=== PATIENT | female | born 1960 | race Caucasian/White ===

== ENCOUNTER 2017-02-23 05:57 | Inpatient (IN) | payer BC, OTHER ==
[2017-02-23] MEDS ORDERED: TRANEXAMIC ACID 1,000 MG in NORMAL SALINE 100 ML IV PRN (06:00)
[2017-02-23] MEDS ORDERED: ceFAZolin SODIUM 1 GM VIAL IV PRN (06:00)
[2017-02-23] MEDS ORDERED: RINGERS SOLUTION,LACTATED 1,000 ML IV PRN (06:00)
[2017-02-23] MEDS ORDERED: MORPHINE SULFATE 15 MG TABLET.SA PO PRN (06:00)
[2017-02-23] MEDS ORDERED: ROPIVACAINE HCL/PF 100 MG, EPINEPHrine 0.2 MG, KETOROLAC TROMETHAMINE 30 MG in NORMAL S... IJ PRN (06:00)
--- OUTSIDE RECORDS SUMMARY | 2017-02-23 06:01 | XMS REPORT | Continuity of Care Document ---
:1960 Author Organization [facility] ([facility]) Address [address] [place] [address] Phone [phone] Care Team Providers Name Role Phone Myriam Solis Primary Care Provider [phone] Source Comments This disclosure is being made pursuant to the Care Everywhere program, applicable federal and state laws, and may not contain all informaitonavailable regarding this patient.[facility] ([facility]) Active Allergies and Adverse Reactions Allergen Noted Date Severity Reactions Comments Docetaxel 02/11/2014 Flushing Lower back pain Sulfa (Sulfonamide Antibiotics) 01/15/2014 Rash Current Medications Prescription Sig. Disp. Refills Start Date End Date Status FOLIC ACID/MULTIVITS-MIN Take by mouth. Active (ONE DAILY WOMENS 50 PLUS PO) biotin 10 mg tablet Take 10 mg by Active mouth daily. GLUCOSAMINE/CHONDROITIN Take by mouth. Active SULF A (GLUCOSAMINE-CHONDROITIN PO) bvylnvd-qvkyiigqt-mexnvh-z Take 1 Tab by Active inc tablet mouth daily. TRIAMCINOLONE ACETONIDE Active (NASACORT NA) ibuprofen 200 mg tablet Take 200 mg by Active mouth every 6 hours as needed. 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 06/28/2014 07/23/2014 Pre-op evaluation 01/15/2014 06/28/2014 Most Recent Encounters Date Type Specialty Providers Description 01/26/2017 Office Visit Women's Health Dayana Mcmullen, Dx: 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 (Primary Dx) 01/26/2017 Hospital Encounter Radiology Dayana Mcmullen, Dx: Encounter for LAYBOY OPERATOR screening mammogram Davide Chirinos, for malignant MD neoplasm of breast Immunizations Name Dates Previously Given Next Due Pneumococcal Polysaccharide, PPSV23 (Pneumovax 23) 01/25/2014 Social History Tobacco Use Types Packs/Day Years Used Date Never Smoker Smokeless Tobacco: Never Used Tobacco Cessation:Counseling Given: Yes Comments: Alcohol Use Drinks/Week oz/Week Comments Yes 1 Glasses of wine 0.0 Occasional 1 Standard drinks or equivalent Last Filed Vital Signs Vital Sign Reading Time Taken Blood Pressure 125/72 01/26/2017 10:10 AM CDT Pulse 84 01/26/2017 10:10 AM CDT Temperature 36.5 C (97.7 F) 04/26/2016 11:08 AM CDT Respiratory Rate 16 04/26/2016 11:08 AM CDT Height 1.6 m (5' 2.99") 01/26/2017 10:10 AM CDT Weight 64.6 kg (142 lb 6.7 oz) 01/26/2017 10:10 AM CDT Body Mass Index 25.23 01/26/2017 10:10 AM CDT Oxygen Saturation 98% 05/12/2015 11:13 AM CDT Plan of Care Date Type Specialty Providers Description 01/18/2018 Appointment Radiology Default, Other Billg - Subj: Appointment Defo Scheduled [address] [place] [address] [phone] (Fax) 01/18/2018 Appointment Women's Health Default, Other Billg - Defo [address] [place] [address] [phone] (Fax) Subj: Appointment Dayana Mcmullen, LAYBOY OPERATOR [address] [place] [address] [phone] (Fax) Scheduled Health Maintenance Due Date Last Done Comments HCV Screening 1960 Hepatitis B Vaccine (1 of 3 1960 - Primary Series) Tdap Vaccine 1969 Lipid Disorder Screening 1976 MMR Vaccine 1976 Td Vaccine 1976 Cervical Cancer Screening 1988 Colonoscopy 12/14/2008 Pneumococcal Vaccine (2 of 3 01/25/2015 01/25/2014 - PCV13) Influenza Vaccine: Seasonal 05/03/2017 (Season Ended) Mammogram 01/26/2018 01/26/2017, Additional history exists 01/27/2016, 01/28/2015 Results from Last 3 Months BI DIGITAL SCREENING MAMMOGRAM UNI LEFT& TONIA (01/26/2017 9:48 AM) Impressions Findings / Impression:There are no suspicious masses or suspicious microcalcifications and no areas of suspicious architectural distortion in the left breast. Comparison to prior exam demonstrates no interval change. Recommendations:Continue annual screening mammogram.These results were provided to the patient by letter. Final Assessment:Negative mammogram. BI-RADS Category 1. Narrative Procedure: BI DIGITAL SCREENING MAMMOGRAM UNI LEFT & TONIA Technique:Digital mammogram with Tomosynthesis, left CC and MLO views. Clinical Indication:Breast cancer screening Personal History of breast cancer: Yes, right and 2002 and 2013 status post mastectomy and radiation Personal Delivery History: Prior to age 28 Personal History of biopsy proven benign breast disease: Yes, right in 2011 Personal history of reduction mammoplasty: No Family History of breast cancer: No Date of Comparison Study: 01/27/2016, 01/28/2015, 01/15/2014 Parenchymal Radiodensity: The breasts are almost entirely fatty. Procedure Note Edison, Incoming Imaging Results - TueJan 26, 2017 10:05 AM CDT Procedure: BI DIGITAL SCREENING MAMMOGRAM UNI LEFT & TONIA Technique: Digital mammogram with Tomosynthesis, left CC and MLO views. Clinical Indication: Breast cancer screening Personal History of breast cancer: Yes, right and 2002 and 2013 status post mastectomy and radiation Personal Delivery History: Prior to age 28 Personal History of biopsy proven benign breast disease: Yes, right in 2011 Personal history of reduction mammoplasty: No Family History of breast cancer: No Date of Comparison Study: 01/27/2016, 01/28/2015, 01/15/2014 Parenchymal Radiodensity: The breasts are almost entirely fatty. IMPRESSION Findings / Impression: There are no suspicious masses or suspicious microcalcifications and no areas of suspicious architectural distortion in the left breast. Comparison to prior exam demonstrates no interval change. Recommendations: Continue annual screening mammogram. These results were provided to the patient by letter. Final Assessment: Negative mammogram. BI-RADS Category 1.
--- OUTSIDE RECORDS SUMMARY | 2017-02-23 06:01 | XMS REPORT | Continuity of Care Document ---
:1960 Author Organization [facility] [place] [address] Care Team Providers Name Role Phone Myriam Solis Primary Care Provider [phone] Source Comments This disclosure is being made pursuant to the Invarium program and maynot contain all information available regarding this patient.[facility] Active Allergies and Adverse Reactions Allergen Noted Date Severity Reactions Comments Sulfa Antibiotics 01/28/2017 Low Rash Current Medications Be aware that medications may not be up to date as of this document. Alwaysverify current medications with the patient. Prescription Sig. Disp. Refills Start Date End Date Status buPROPion XL Take 150 mg by 1 01/14/2017 Active (WELLBUTRIN XL) 150 mouth daily. MG 24 hr tablet cephALEXin (KEFLEX) Take 1 capsule 30 capsule 0 01/28/2017 02/07/2017 500 MG capsule by mouth 3 (three) times daily. predniSONE Take 1 tablet 3 tablet 0 01/28/2017 01/31/2017 (DELTASONE) 20 MG by mouth daily. 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 (Primary Dx) Social History Tobacco Use Types Packs/Day Years Used Date Never Assessed Last Filed Vital Signs Vital Sign Reading Time Taken Blood Pressure - - Pulse 108 01/28/2017 4:51 PM CDT Temperature 37.4 C (99.3 F) 01/28/2017 4:51 PM CDT Respiratory Rate - - Height 1.626 m (5' 4") 01/28/2017 4:51 PM CDT Weight 65.227 kg (143 lb 12.8 oz) 01/28/2017 4:51 PM CDT Body Mass Index 24.67 01/28/2017 4:51 PM CDT Oxygen Saturation 98% 01/28/2017 4:51 PM CDT Plan of Care Health Maintenance Due Date Last Done Comments Hepatitis C Screening 1976 Tetanus/Pertussis (1 - Tdap) 1977 Pap Smear 12/16/1979 Colonoscopy 2008 Mammogram 2008 Well Adult Visit 2008 Influenza Immunization (#1) 2016 Results from Last 3 Months Not on file
[2017-02-23] MEDS ORDERED: RINGERS SOLUTION,LACTATED 1,000 ML IV ONE ×3 (07:45→09:35)
[2017-02-23] MEDS ORDERED: ACETAMINOPHEN 500 MG TABLET PO PRN (09:47)
[2017-02-23] MEDS ORDERED: MAG HYDROX/ALUMINUM HYD/SIMETH 30 ML UDC PO PRN (09:47)
[2017-02-23] MEDS ORDERED: PROMETHAZINE HCL 5 MG in DEXTROSE 5 % IN WATER 50 ML IV PRN ×2 (09:47)
[2017-02-23] MEDS ORDERED: DEXTROSE 5%-LACTATED RINGERS 1,000 ML IV PRN (09:47)
[2017-02-23] MEDS ORDERED: diphenhydrAMINE HCL 50 MG/ML VIAL IV PRN (09:47)
[2017-02-23] MEDS ORDERED: HYDROmorphone HCL 1 MG/ML DISP.SYRIN IV PRN (09:47)
[2017-02-23] MEDS ORDERED: MAGNESIUM HYDROXIDE 30 ML UDC PO PRN (09:47)
[2017-02-23] MEDS ORDERED: ZOLPIDEM TARTRATE 5 MG TABLET PO PRN (09:47)
[2017-02-23] MEDS ORDERED: ONDANSETRON HCL/PF 2 MG/ML VIAL IV PRN (09:47)
--- NOTE | 2017-02-23 10:07 | OR ---
Operative Report - Dictated Report Narrative: Date: 02/23/2017 Preoperative diagnosis: Right Knee degenerative joint disease. Postoperative diagnosis: Right Knee degenerative joint disease. Procedure: Right Total knee arthroplasty. Surgeon: Jon Craft M.D. Professor Of Food Biochemistry: Lamin Pierce PA-C Anesthesia: Spinal with regional block and local periarticular joint injection. Complications: None Specimens: Bone for disposal. Estimated blood loss: Minimal. Tourniquet time: 75 Minutes at 325 millimeters of mercury. Retained implants: Depuy Attune size 6 narrow right lugged cemented posterior stabilized femoral component. Size 5 fixed-bearing cemented tibial platform. 6 by 7 millimeter posterior stabilized cross-linked tibial insert. 38 millimeter medialized patella button. Indications: Mrs. Buckner is a 56-year-old female who has had advanced right knee arthrosis. This patient was followed in my clinic for period of time with significant complaints of right knee pain consistent with arthritic changes. They had failed conservative measures including, but not limited to, activity modification, passage of time, medications, and other conservative measures. Patient wished to proceed with surgical treatment. The risks, benefits, and alternatives were discussed in clinic. The risks of , blood clots, bleeding, infection, nerve/tendon blood vessel/ injury, malposition of components, intraoperative fracture, postoperative limited range of motion, persistent pain, failure of components, and need for additional procedures. Patient wished to proceed consent was obtained after answering all questions. Procedure: After marking the correct extremity on the floor, the patient was taken to the operating room. A timeout was performed. IV antibiotics consisting of Ancef were administered prior to the procedure. A regional followed by spinal anesthetic was induced by anesthesia on the operative table with all bony prominences well-padded. Mesa catheter was placed, and a bump was placed under the operative side buttock. SCDs and MARY hose were utilized on the nonoperative leg. A well-padded tourniquet was applied to the operative thigh. The operative leg was then pre-scrubbed with ebenezer lutz prepped, and draped in a standard sterile fashion. After exsanguinating the extremity with an Esmarch bandage, the tourniquet was inflated. After marking out the anterior knee for standard incision centered over the patella, the skin was incised and dissected down to the joint retinaculum. The joint retinaculum was marked out as well as the horizontal axis of the patella, and a standard medial parapatellar arthrotomy was then made. The most proximal aspect of the quadriceps tendon and the patella tendon insertion were protected from release. A partial synovectomy was performed as well as a resection of the infrapatellar fat pad. The distal femoral fat pad proximal to the trochlea was also resected using cautery. The soft tissues were elevated off the medial aspect of the proximal tibia using a Figueroa elevator ensuring that we did not transect the medial collateral ligament. Upon initial evaluation range of motion was approximately 0 degrees to 130 degrees of flexion. There were signs of advanced arthrosis in the medial and patellofemoral joint spaces. There were large marginal osteophytes which were removed with a rongeur. The knee was hyperflexed and the patella was tucked laterally. Protecting the surrounding soft tissues with Homans, an entry drill was placed down the femoral canal using Whitesides line for guidance into the entry point. The intramedullary femoral alignment cristo was utilized in order to cut the distal femur in 5 degrees of valgus resecting 10 millimeters of bone. Next the distal femur was sized to a size 6. A posterior referencing guide was utilized to place the distal femoral cutting block in 3 degrees of external rotation. This was pinned into place. The rotation was confirmed both visually and based on anatomic landmarks. The 4 in 1 cutting jig of the appropriate size was utilized in order to make all bony cuts. The angle wing was used to ensure no notching. Retractors were utilized in order to protect surrounding soft tissues. This cut did not result in any excessive notching. We then cut the box centered over the distal femur. This allowed for resection of the anterior and posterior cruciate ligaments. I then turned my attention to the preparation of the tibia. Using an extra medullary tibial alignment cristo, 4 millimeters of bone was resected off the medial articular surface. This was made perpendicular to the mechanical axis of the joint with the alignment cristo centered over the ankle mortise. The alignment cristo was checked and was noted to be parallel to the mechanical axis, centered over the medial one third of the tibial tubercle, paralleling the anterior surface of the tibia. We then turned our attention to the remaining meniscus and soft tissues. These were removed while protecting the surrounding ligaments and soft tissues. The marginal osteophytes off the anterior, posterior, medial, lateral aspects of the femur and tibia were removed. The tibia was sized out to a size 5. Next the tibia was drilled and punched in an externally rotated position. Next the trial femur and a series of tibial inserts were utilized in order to allow for full extension and maximal flexion. It was found that a 7 millimeter insert gave the best range of motion and stability at multiple flexion points as well as at full extension there was less than 2 mm of gapping both medially and laterally. There is minimal anterior translation with the knee at 90 degrees of flexion and no signs of being able to dislocate the knee. The patella was then prepared. The initial thickness was 20 millimeters. This was reamed down to 12 millimeters parallel to the anterior surface of the patella. It was sized out to a size 38 medialized patella button. This was then drilled and trialed. Without any medial restraint the patella tracked appropriately and did not sublux or dislocate. At this point, it was felt these were the appropriate sized implants, and all trials were removed. The standard periarticular joint injection consisting of ropivacaine, Toradol, and epinephrine were injected into the periarticular joint tissues. The bony surfaces were thoroughly irrigated with a pulsatile- suction saline irrigation device. A bone plug from the prior resected anterior chamfer cut was placed into the drill hole at the distal femur. The bony surfaces were then dried in preparation for placement of the implants. The cement was vacuum mixed per the sustainability officer's instructions. The cement was placed on the dry bony surfaces and posterior aspect of the implants. The implants were impacted into place, removing all extruded cement. At this point anesthesia administered tranexamic acid per protocol intravenously. The knee was placed in extension with axial loading with the trial insert while the cement cured. Once the cement cured, all remaining extruded cement was removed. The knee was placed through a range of motion with the trial insert to ensure appropriate range of motion and stability. Final range of motion was approximately 0 to 120 degrees. The knee was again thoroughly irrigated with pulsatile saline lavage. The final polyethylene insert was then impacted into place ensuring no retained soft tissues. The remaining periarticular joint injection was injected. A medium Hemovac drain was placed exiting superior laterally. The knee was then placed over a triangle and the arthrotomy was closed with interrupted #1 Vicryl after thoroughly irrigating the joint. The deep and subcutaneous tissues were closed with interrupted oh and 3-0 Vicryl respectively. Skin was closed with a running subcutaneous 3-0 Monocryl and Prineo Dermabond dressing. 4 x 4's, ABD, Sof-Rol, and a full leg [place] wrap were applied. All sponge, needle, blade, and instrument counts were correct prior to closing the wounds. Postoperative condition: The patient was awoken and transferred to the postanesthesia care unit in stable condition. Plan is to be admitted to the inpatient medical/surgical floor postoperatively for 24 hours of IV antibiotics , physical therapy, occupational therapy, and medical comanagement. Patient will be weightbearing as tolerated with range of motion as tolerated. DVT prophylaxis will be with SCDs, MARY hose, and pharmacological anticoagulation. Anticipated hospital stay is approximately 2-4 days.
[2017-02-23] MEDS: KETOROLAC TROMETHAMINE 15 MG/ML VIAL IV SCH ×3 (10:47→23:25)
[2017-02-23] MEDS: ceFAZolin SODIUM 1 GM in DEXTROSE 5 % IN WATER 100 ML IV SCH ×4 (13:04→19:39)
[2017-02-23] MEDS: SENNOSIDES/DOCUSATE SODIUM 1 TAB TABLET PO SCH (20:14)
[2017-02-23] MEDS: MORPHINE SULFATE 15 MG TABLET.SA PO SCH (20:14)
[2017-02-24] MEDS: ceFAZolin SODIUM 1 GM in DEXTROSE 5 % IN WATER 100 ML IV SCH ×2 (01:15)
[2017-02-24] MEDS: KETOROLAC TROMETHAMINE 15 MG/ML VIAL IV SCH ×4 (05:25→22:56)
[2017-02-24 05:39] LABS: Hematocrit 36.4 % (37.0-47.0); Hemoglobin 11.5 gm/dL (12.5-16.0); Mean Cell Volume 92.9 fl (78-100); Mean Corpuscular Hemoglobin 29.3 pg (27-31); Mean Corpuscular Hgb Conc 31.6 g/dl (32-36); Mean Platelet Volume 12.7 fl (6.0-9.5); Platelet Count 117 K/mm3 (150-450); Red Blood Count 3.92 M/mm3 (4.2-5.4); Red Cell Distribution Width 14.5 % (11.5-14.0); White Blood Count 8.1 K/mm3 (4.0-10.5)
[2017-02-24 05:57] LABS: Anion Gap 11.9 mmol/L (6.8-13.8); BUN/Creatinine Ratio 20.9 (9.0-21.6); Calcium * 8.5 mg/dL (7.9-10.9); Carbon Dioxide 27.2 mmol/L (24-32.6); Potassium 4.1 mmol/L (3.4-4.6)
--- NOTE | 2017-02-24 08:02 | PN ---
Subjective - Date and Time Seen Date: 02/24/17 Time: 08:00 Subjective Narrative: Subjective: Reports no concerns or pain. Has not gotten up with therapy. Pain is well-controlled. Voiding without any complications. Tolerating by mouth intake. Denies any nausea or vomiting. Denies calf pain. Slept well. Physical exam: Alert and oriented to person, place and time Right lower Extremity: Palpable dorsalis pedis pulse. Sensation grossly intact to light touch. Dressings clean dry. Able to flex and extend ankle and toes. No excessive drainage. Calf and thigh are soft and nontender. Assessment: Postop day one status post right total knee arthroplasty. Plan: Continue with physical and occupational therapy weightbearing as tolerated. Continue with anticoagulation. 24 hours postoperative prophylactic antibiotics. Pain control with goal to rely on oral medications. Continue bowel regimen. Will need 6 weeks with walker or assitive device to protect joint while ambulating during the recovery process. Discharge planning. Discontinue drain and Mesa catheter. Repeat labs in a.m. Objective - Vitals Vitals: Last Vital Signs Temp 37.1 C 02/24/17 07:33 Pulse 103 H 02/24/17 07:33 Resp 18 02/24/17 07:33 BP 118/45 02/24/17 07:33 Pulse Ox 98 02/24/17 07:33 - Abnormal Lab Findings Abnormal Lab Findings: Abnormal Lab Results 02/24/17 02/24/17 Range/Units 05:30 05:30 RBC 3.92 L (4.2-5.4) M/mm3 Hgb 11.5 L (12.5-16.0) gm/dL Hct 36.4 L (37.0-47.0) % MCHC 31.6 L (32-36) g/dl RDW 14.5 H (11.5-14.0) % Plt Count 117 L (150-450) K/mm3 MPV 12.7 H (6.0-9.5) fl Random Glucose 112 H (70-110) mg/dL Cauti Physician Documentation - Urinary Catheter Management Urethral (Mesa) Date of Insertion: 02/23/17 Time of Insertion: 08:00 Date of Removal: 02/24/17 Time of Removal: 07:15 Assessment/Plan - Problems/Diagnosis (1) Acute blood loss anemia Problem: Acute (2) Status post total right knee replacement Problem: Acute
[2017-02-24] MEDS: MULTIVITAMINS 1 CAP CAPSULE PO SCH (09:46)
[2017-02-24] MEDS: buPROPion HCL 150 MG TAB.SR.24H PO SCH (09:46)
[2017-02-24] MEDS: MORPHINE SULFATE 15 MG TABLET.SA PO SCH ×2 (09:46→21:01)
[2017-02-24] MEDS: ENOXAPARIN SODIUM 40 MG/0.4 ML SYRG SC SCH (09:46)
[2017-02-24] MEDS: SENNOSIDES/DOCUSATE SODIUM 1 TAB TABLET PO SCH (21:01)
[2017-02-25] MEDS: KETOROLAC TROMETHAMINE 15 MG/ML VIAL IV SCH (05:52)
[2017-02-25 06:06] LABS: Hematocrit 33.5 % (37.0-47.0); Hemoglobin 10.6 gm/dL (12.5-16.0); Mean Cell Volume 93.3 fl (78-100); Mean Corpuscular Hemoglobin 29.5 pg (27-31); Mean Corpuscular Hgb Conc 31.6 g/dl (32-36); Mean Platelet Volume 13.4 fl (6.0-9.5); Red Blood Count 3.59 M/mm3 (4.2-5.4); Red Cell Distribution Width 14.3 % (11.5-14.0); White Blood Count 7.7 K/mm3 (4.0-10.5)
[2017-02-25 06:23] LABS: Anion Gap 9.5 mmol/L (6.8-13.8); BUN/Creatinine Ratio 20.6 (9.0-21.6); Calcium * 8.6 mg/dL (7.9-10.9); Carbon Dioxide 28.8 mmol/L (24-32.6); Estimated Creat Clear 84.1; Potassium 4.3 mmol/L (3.4-4.6)
[2017-02-25 06:24] LABS: Platelet Count 40 K/mm3 (150-450)
[2017-02-25 07:19] VITALS: BP 94/48
[2017-02-25] MEDS: MULTIVITAMINS 1 CAP CAPSULE PO SCH (08:44)
[2017-02-25] MEDS: buPROPion HCL 150 MG TAB.SR.24H PO SCH (08:44)
[2017-02-25] MEDS: ENOXAPARIN SODIUM 40 MG/0.4 ML SYRG SC SCH (08:45)
[2017-02-25] MEDS: MORPHINE SULFATE 15 MG TABLET.SA PO SCH (08:45)
[2017-02-25] MEDS: oxyCODONE HCL/ACETAMINOPHEN 1 TAB TABLET PO PRN ×2 (09:57→14:17)
--- NOTE | 2017-02-25 11:41 | DS ---
(1) Acute blood loss anemia Problem: Acute (2) Status post total right knee replacement Problem: Acute Description of Stay: Mrs. Buckner was admitted to the floor after undergoing right total knee arthroplasty. Tolerated this well. Was admitted to the floor postoperatively for 24 hours of IV antibiotics, pain control, medical comanagement, and occupational and physical therapy. OT and PT were consulted to assist with activities of daily living and ambulation. Was made weightbearing as tolerated with range of motion as tolerated. Pain was initially controlled with IV regimen. This was transitioned to oral once tolerating a by mouth intake. Was resumed on home diet and medications. Had a Mesa catheter inserted and the operating room which was discontinued on postoperative day 1. A drain was placed intraoperatively into the knee which was discontinued on postoperative day 1. Lovenox SCD and MARY hose were utilized for DVT prophylaxis. Vital signs remained stable to the hospital course. Serial labs were obtained which showed a final hemoglobin of 10.6 grams. BMP was reviewed and was stable. Physical examination throughout the hospital course showed an extremity that had sensation that was intact to light touch, palpable pulses, a benign wound, motor intact to the toes, ankle, and knee. Knee range of motion was approximately 0 degrees to 70 degrees. Once an oral pain regimen was tolerated and physical therapy goals were met, it was felt that they were stable for discharge to home. Instructions: Continue with weightbearing as tolerated and range of motion as tolerated. Okay to shower as long as the wound is dry. If there is any drainage she is instructed to cover with dry gauze and tape. Change every 2-3 days as needed. Continue with physical therapy. Resume home diet. Report any fever over 101.5 Fahrenheit, uncontrolled pain, increased drainage, foul odor of drainage, new or increased calf pain or shortness of breath, or any other significant complaints. A 325mg dialy aspirin will be started after finishing anticoagulation if not allergic. Continue with MARY hose on the operative extremity until instructed otherwise. No driving until instructed otherwise. Follow up in approximately 10-14 days. Procedures Performed: see notes below List Procedures: Right total knee arthroplasty Discharge Disposition: Home self care Disposition: Home self-care Condition: Good Discharge Activity: Activity as tolerated, Weight bearing Discharge Diet: General/regular food Referrals: Myriam Solis MD [Primary Care Provider] - Additional Patient Instructions (free text): Physical Therapy at [facility] in [place] on TuesdayMarch 01 at 11:00am. Follow up with Dr. Craft 03/10 at 9:45. Prescriptions (Any new or edited meds): Enoxaparin Sodium [Lovenox] 40 mg SC Q24H #7 disp.syrin Morphine Sulfate [Ms Contin] 15 mg PO Q12H #10 tablet.sa oxyCODONE HCL/ACETAMINOPHEN [Percocet 5 MG/325 MG] 2 tab PO Q4H PRN #90 tablet PRN Reason: Moderate Pain Complete Home Medications List: Complete Home Medication List: Bupropion HCl [Bupropion Xl] 150 mg PO DAILY 03/09/14 Multivitamins [Multivitamin Shahriar] 1 cap PO DAILY 02/09/17 Enoxaparin Sodium [Lovenox] 40 mg SC Q24H #7 disp.syrin 02/25/17 Morphine Sulfate [Ms Contin] 15 mg PO Q12H #10 tablet.sa 02/25/17 Sennosides/Docusate Sodium [Senokot-S] 2 tab PO HS tablet 02/25/17 oxyCODONE HCL/ACETAMINOPHEN [Percocet 5 MG/325 MG] 2 tab PO Q4H PRN #90 tablet 02/25/17
== END 2017-02-25 14:30 | disposition home or self-care (01) | DRG 470 ==
LOC: MS 05:57
PROVIDERS: ADMIT Orthopaedic Surgery; ATTEND Orthopaedic Surgery
PROC: 0SRC0J9 Replacement of Right Knee Joint with Synthetic Substitute, Cemented, Open Approach (ICD-10-PCS; principal; 2017-02-23 08:00)
DX: M17.11 Unilateral primary osteoarthritis, right knee (principal); D62 Acute posthemorrhagic anemia; Z88.2 Allergy status to sulfonamides; Z85.3 Personal history of malignant neoplasm of breast

== ENCOUNTER 2019-01-15 06:28 | Inpatient (IN) ==
[~2019-01-15 06:28] MED LIST: MORPHINE SULFATE 15 MG TABLET.SA PO PRN; ROPIVACAINE HCL/PF 100 MG, EPINEPHrine 0.2 MG, KETOROLAC TROMETHAMINE 30 MG in NORMAL S... IJ PRN; TRANEXAMIC ACID 1,000 MG in NORMAL SALINE 100 ML IV PRN; ceFAZolin SODIUM 1 GM VIAL IV PRN
[2019-01-15] MEDS: RINGER'S SOLUTION,LACTATED 1,000 ML IV PRN ×3 (07:02→09:00)
--- NOTE | 2019-01-15 07:25 | ANES ---
Anesthesia Pre Procedure Eval Vitals/Labs: Last Vital Signs Temp 36.3 C 01/15/19 06:30 Pulse 89 01/15/19 06:30 Resp 20 01/15/19 06:30 BP 120/68 01/15/19 06:30 Pulse Ox 98 01/15/19 06:30 HOME MEDICATIONS Multivitamins [Multivitamin Shahriar] 1 cap PO DAILY 02/09/17 [Last Taken 01/14/19] melatonin 5 mg capsule 5 mg PO HS PRN cap 09/11/18 [Last Taken 01/14/19] Bupropion HCl [Wellbutrin Sr] 150 mg PO DAILY 01/11/19 [Last Taken 01/14/19] Fluticasone Propionate [Flonase Allergy Relief] 1 spray INHALATION DAILY PRN 01/11/19 [Last Taken 01/14/19] Allergies/Adverse Reactions: Allergies Allergy/AdvReac Type Severity Reaction Status Date / Time Sulfa (Sulfonamide Allergy Mild Hives Verified 01/15/19 06:42 Antibiotics) - Planned Procedure Planned Procedure: L total knee Medication List Reviewed:: Yes Allergies Verified: Yes Medical History (Updated 01/15/19 @ 06:41 by Dorothy Perez, MINH) FH: total knee replacement Breast cancer, female Onset Date: ~01/03/14 recurrent, right breast Breast lump 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 Cellulitis Onset Date: ~10/20/15 right breast Detached retina, right Onset Date: ~07/2018 surgical repair with scleral band Hay fever cough, rhinitis, sneezing Situational anxiety Sinusitis, acute Onset Date: ~10/23/13 Surgical History (Updated 01/15/19 @ 06:41 by Dorothy Perez RN) History of esophagogastroduodenoscopy (EGD) Onset Date: ~11/03/18 [facility] History of tonsillectomy age 4 H/O right mastectomy History of dilation and curettage age 25 and age 29 History of knee surgery Onset Date: ~08/14/15 right knee/[facility] right knee arthroscopy partial medial meniscectomy, chondroplasty grade 4 chondromalacia medial femoral condyle, patrial lateral meniscectomy, anterior fat pad debridement chondroplasty patellofemoral joint grade 3 chondromalacia History of lumpectomy Onset Date: ~2002 age 42/ breast cancer Right Hx of breast reconstruction Onset Date: ~07/2014 right Family History (Last Reviewed 01/15/19 @ 07:24 by Fernandez Mcarthur CRNA) Mother Depression Hypothyroidism Father CAD (coronary artery disease) Arthritis Eczema History of hip replacement Headache Glaucoma Sister Alive and well Sister Alive and well Brother CVA (cerebral vascular accident) Grandfather CHF (congestive heart failure) Cancer colon Glaucoma Son Alive and well Daughter Alive and well - Family Anesthesia History Family History:: no untoward family reactions to anesthesia, no familial bleeding tendencies, no family history of clotting disorders, no family history of premature - Airway/Neck/Teeth Within Normal Limits:: Yes Teeth Condition: intact Denture Type: Perm crown/bridge Mallampatti Score: 1 Thyromental (T-M) distance: > 6 cm Mandibulo Hyoid distance: > 3 cm - Respiratory Respiratory Physical: lungs clear Smoking Status: Never smoker Discussed smoking cessation including day of surgery: No Sleep Apnea currently treated: No Sleep Apnea by current assessment: No Discussed Risks/Treatment of RJ: No - Cardiovascular Cardiac History: other - Breast cancer Tolerate Activity: Good Heart Sounds: S1 & S2, Regular - Anesthesia Assessment and Plan ASA Class: PS, III Anesthesia Type Plan: Block - Left ultrasound guided adductor canal nerve block for postop analgesia, Spinal
[2019-01-15] MEDS ORDERED: MAGNESIUM HYDROXIDE 30 ML UDC PO PRN (10:00)
[2019-01-15] MEDS ORDERED: ZOLPIDEM TARTRATE 5 MG TABLET PO PRN (10:00)
[2019-01-15] MEDS ORDERED: ONDANSETRON HCL/PF 2 MG/ML VIAL IV PRN (10:00)
[2019-01-15] MEDS ORDERED: diphenhydrAMINE HCL 50 MG/ML VIAL IV PRN (10:00)
[2019-01-15] MEDS ORDERED: MORPHINE SULFATE 2 MG/ML DISP.SYRIN IV PRN (10:00)
[2019-01-15] MEDS ORDERED: ACETAMINOPHEN 500 MG TABLET PO PRN (10:00)
[2019-01-15] MEDS ORDERED: MAG HYDROX/ALUMINUM HYD/SIMETH 30 ML UDC PO PRN (10:00)
[2019-01-15] MEDS ORDERED: DEXTROSE 5%-LACTATED RINGERS 1,000 ML IV PRN (10:00)
--- NOTE | 2019-01-15 10:00 | OR ---
Operative Report - Dictated Report Narrative: Date: 01/15/2019 Preoperative diagnosis: Left Knee degenerative joint disease. Postoperative diagnosis: Left Knee degenerative joint disease. Procedure: Left Total knee arthroplasty. Surgeon: Jon Craft M.D. Dry Cleaner Helper: None Anesthesia: Spinal with regional block and local periarticular joint injection. Complications: None Specimens: Bone for disposal. Estimated blood loss: Minimal. Tourniquet time: 100 Minutes at 325 millimeters of mercury. Retained implants: Depuy Attune size 6 narrow left lugged cemented posterior stabilized femoral component. Size 4 fixed-bearing cemented tibial platform. 6 by 5 millimeter posterior stabilized cross-linked tibial insert. 38 millimeter medialized patella button. Indications: Mrs. Buckner is a 58-year-old female who has had long-standing left knee pain and arthrosis. This patient was followed in my clinic for period of time with significant complaints of left knee pain consistent with arthritic changes. She had failed conservative measures including, but not limited to, activity modification, passage of time, medications, and other conservative measures. Patient wished to proceed with surgical treatment. The risks, benefits, and alternatives were discussed in clinic. The risks of , blood clots, bleeding, infection, nerve/tendon blood vessel/ injury, malposition of components, intraoperative fracture, postoperative limited range of motion, persistent pain, failure of components, and need for additional procedures. Patient wished to proceed consent was obtained after answering all questions. Procedure: After marking the correct extremity on the floor, the patient was taken to the operating room. A timeout was performed. IV antibiotics consisting of Ancef were administered prior to the procedure. A regional followed by spinal anesthetic was induced by anesthesia, per my request, on the operative table with all bony prominences well-padded. Mesa catheter was placed, and a bump was placed under the operative side buttock. SCDs and MARY hose were utilized on the nonoperative leg. A well-padded tourniquet was applied to the operative thigh. The operative leg was then pre-scrubbed with alcohol, prepped, and draped in a standard sterile fashion. After exsanguinating the extremity with an Esmarch bandage, the tourniquet was inflated. After marking out the anterior knee for standard incision centered over the patella, the skin was incised and dissected down to the joint retinaculum. The joint retinaculum was marked out as well as the horizontal axis of the patella, and a standard medial parapatellar arthrotomy was then made. The most proximal aspect of the quadriceps tendon and the patella tendon insertion were protected from release. A partial synovectomy was performed as well as a resection of the infrapatellar fat pad. The distal femoral fat pad proximal to the trochlea was also resected using cautery. The soft tissues were elevated off the medial aspect of the proximal tibia using a Figueroa elevator ensuring that we did not transect the medial collateral ligament. Upon initial evaluation range of motion was approximately 0 degrees to 130 degrees of flexion. There were signs of advanced arthrosis in the medial and patellofemoral greater than lateral joint spaces. There were large marginal osteophytes which were removed with a rongeur. The knee was hyperflexed and the patella was tucked laterally. Protecting the surrounding soft tissues with Homans, an entry drill was placed down the femoral canal using Whitesides line for guidance into the entry point. The intramedullary femoral alignment cristo was utilized in order to cut the distal f emur in 5 degrees of valgus resecting 10 millimeters of bone. Next the distal femur was sized to a size 6. A posterior referencing guide was utilized to place the distal femoral cutting block in 3 degrees of external rotation. This was pinned into place. The rotation was confirmed both visually and based on anatomic landmarks. The 4 in 1 cutting jig of the appropriate size was utilized in order to make all bony cuts. The angle wing was used to ensure no notching. Retractors were utilized in order to protect surrounding soft tissues. This cut did not result in any excessive notching. We then cut the box centered over the distal femur. This allowed for resection of the anterior and posterior cruciate ligaments. I then turned my attention to the preparation of the tibia. Using an extra medullary tibial alignment cristo, 4 millimeters of bone was resected off the medial articular surface. This was made perpendicular to the mechanical axis of the joint with the alignment cristo centered over the ankle mortise. The alignment cristo was checked and was noted to be parallel to the mechanical axis, centered over the medial one third of the tibial tubercle, paralleling the anterior surface of the tibia. We then turned our attention to the remaining meniscus and soft tissues. These were removed while protecting the surrounding ligaments and soft tissues. The marginal osteophytes off the anterior, posterior, medial, lateral aspects of the femur and tibia were removed. The tibia was sized out to a size 4. Next the tibia was drilled and punched in an externally rotated position. Next the trial femur and a series of tibial inserts were utilized in order to allow for full extension and maximal flexion. It was found that a 5 millimeter insert gave the best range of motion and stability at multiple flexion points as well as at full extension there was less than 2 mm of gapping both medially and laterally. There is minimal anterior translation with the knee at 90 degrees of flexion and no signs of being able to dislocate the knee. The patella was then prepared. The initial thickness was 21 millimeters. This was reamed down to 12 millimeters parallel to the anterior surface of the patella. It was sized out to a size 38 medialized patella button. This was then drilled and trialed. Without any medial restraint the patella tracked appropriately and did not sublux or dislocate. At this point, it was felt these were the appropriate sized implants, and all trials were removed. The standard periarticular joint injection consisting of ropivacaine, Toradol, and epinephrine were injected into the periarticular joint tissues. The bony surfaces were thoroughly irrigated with a pulsatile-suction saline irrigation device. A bone plug from the prior resected anterior chamfer cut was placed into the drill hole at the distal femur. The bony surfaces were then dried in preparation for placement of the implants. The cement was vacuum mixed per the president ceo & founder's instructions. The cement was placed on the dry bony surfaces and posterior aspect of the implants. The implants were impacted into place, removing all extruded cement. At this point anesthesia administered tranexamic acid per protocol intravenously. The knee was placed in extension with axial loading with the trial insert while the cement cured. Once the cement cured, all remaining extruded cement was removed. The knee was placed through a range of motion with the trial insert to ensure appropriate range of motion and stability. Final range of motion was approximately 0 to 130 degrees. The knee was again thoroughly irrigated with pulsatile saline lavage. The final polyethylene insert was then impacted into place ensuring no retained soft tissues. The remaining periarticular joint injection was injected. A medium Hemovac drain was placed exiting superior laterally. The knee was then placed over a triangle and the arthrotomy was closed with interrupted #1 Vicryl after thoroughly irrigating the joint. The deep and subcutaneous tissues were closed with interrupted 0 and 3-0 Vicryl respectively. Skin was closed with a running subcutaneous 3-0 Monocryl and Prineo Dermabond dressing. 4 x 4's, Sof-Rol, and a full leg [place] wrap were applied. All sponge, needle, blade, and instrument counts were correct prior to closing the wounds. Postoperative condition: The patient was awoken and transferred to the postanesthesia care unit in stable condition. Plan is to be admitted to the inpatient medical/surgical floor postoperatively for 24 hours of IV antibiotics, physical therapy, occupational therapy, and medical comanagement. Patient will be weightbearing as tolerated with range of motion as tolerated. DVT prophylaxis will be with SCDs, MARY hose, and pharmacological anticoagulation. Anticipated hospital stay is approximately 1-3 days.
--- NOTE | 2019-01-15 10:09 | ANES ---
Post Anesthesia Discharge - Transfer of Care Transfer of Care handoff given to nurse: Yes - Discharge from PACU Discharge from PACU when meets criteria: Yes - Discharge to ASU Discharge to ASU-no complications/pt stable: Yes
--- NOTE | 2019-01-15 10:12 | ANES ---
Anesthesia Procedure Note Procedure Note: ANESTHESIA PROCEDURE NOTE Date of Procedure: 01/15/2019 Time of procedure: 739. Performed by: Fernandez Mcarthur CRNA Director Of Global Marketing: None. Preprocedure diagnosis: Left knee degenerative joint disease. Post procedure diagnosis: Same. Procedure: Left ultrasound guided adductor canal block for postoperative analgesia. Indications: The patient is a 58 -year-old female, requesting left ultrasound- guided abductor canal block for postoperative analgesia related to left total knee arthroplasty. Findings: See below. Details of the procedure: The tissue over the intended target site was cleansed with ChloraPrepand draped in a sterile fashion. 2 ml Lidocaine 1 % was infiltrated to the skin and subcutaneous tissue at the intended target site. Under sterile technique and ultrasound guidance a 18-gauge Tuohy needle was inserted through the left sartorius muscle to the saphenous nerve just anterior and medial to the superficial femoral artery and vein. 15 mL's of 0.5% bupivacaine was injected after negative aspiration for blood. Needle tip and spread of local anesthetic surrounding the saphenous nerve was observed throughout the injection with real time ultrasound visualization. The Tuohy needle was then removed intact. No complications were noted. The images were retained in the Hospital medical database . EBL: Minimal. Fluids: N/A. Specimen: N/A. Post procedure condition: The patient tolerated the procedure well. No complications were noted. Thank you for this consultation. Fernandez Mcarthur CRNA
[2019-01-15] MEDS: ceFAZolin SODIUM 1 GM in DEXTROSE 5 % IN WATER 100 ML IV SCH ×4 (11:01→17:35)
[2019-01-15] MEDS: KETOROLAC TROMETHAMINE 15 MG/ML VIAL IV SCH ×3 (11:01→21:28)
--- NOTE | 2019-01-15 12:39 | ANES ---
Post Anesthesia Assessment - Vital Signs Vitals: Last Vital Signs Temp 36.4 C 01/15/19 10:45 Pulse 70 01/15/19 10:45 Resp 16 01/15/19 10:45 BP 131/64 01/15/19 10:45 Pulse Ox 100 01/15/19 10:45 Airway Patency: Normal - Mental Status Level Of Consciousness: Awake - Pain Level Pain Score: 0 - N/V Assessment Nausea/Vomiting Presence: None Dehydration:: No
[2019-01-15] MEDS: oxyCODONE HCL/ACETAMINOPHEN 1 TAB TABLET PO PRN ×2 (15:09→20:05)
[2019-01-15] MEDS ORDERED: SENNOSIDES/DOCUSATE SODIUM 1 TAB TABLET PO SCH (21:00)
[2019-01-15] MEDS: MORPHINE SULFATE 15 MG TABLET.SA PO SCH (21:28)
[2019-01-16] MEDS: ceFAZolin SODIUM 1 GM in DEXTROSE 5 % IN WATER 100 ML IV SCH ×2 (00:43)
[2019-01-16] MEDS: oxyCODONE HCL/ACETAMINOPHEN 1 TAB TABLET PO PRN ×3 (00:43→12:55)
[2019-01-16] MEDS: KETOROLAC TROMETHAMINE 15 MG/ML VIAL IV SCH ×2 (04:19→10:33)
[2019-01-16 05:37] LABS: Anion Gap 11.1 mmol/L (6.8-13.8); BUN/Creatinine Ratio 14.8 (9.0-21.6); Calcium * 8.6 mg/dL (7.9-10.9); Carbon Dioxide 28.9 mmol/L (24-32.6); Estimated Creat Clear 61.1
[2019-01-16 06:14] LABS: Hematocrit 36.4 % (37.0-47.0); Hemoglobin 11.5 gm/dL (12.5-16.0); Mean Cell Volume 91.7 fl (78-100); Mean Corpuscular Hgb Conc 31.6 g/dl (32-36); Platelet Count 148 K/mm3 (150-450); Red Blood Count 3.97 M/mm3 (4.2-5.4); Red Cell Distribution Width 14.3 % (11.5-14.0); White Blood Count 7.8 K/mm3 (4.0-10.5)
[2019-01-16] MEDS: MORPHINE SULFATE 15 MG TABLET.SA PO SCH (08:46)
[2019-01-16] MEDS ORDERED: MULTIVITAMINS 1 CAP CAPSULE PO SCH (09:00)
[2019-01-16] MEDS ORDERED: buPROPion HCL 150 MG TABLET.SA PO SCH (09:00)
[2019-01-16] MEDS ORDERED: ENOXAPARIN SODIUM 40 MG/0.4 ML SYRG SC SCH (09:00)
--- NOTE | 2019-01-16 11:34 | DS ---
(1) Acute blood loss anemia Problem: Acute (2) Status post total right knee replacement Problem: Acute Description of Stay: Mrs. Buckner was admitted to the floor after undergoing left total knee arthroplasty. Tolerated this well. Was admitted to the floor postoperatively for 24 hours of IV antibiotics, pain control, medical comanagement, and occupational and physical therapy. OT and PT were consulted to assist with activities of daily living and ambulation. Was made weightbearing as tolerated with range of motion as tolerated. Pain was initially controlled with IV regimen. This was transitioned to oral once tolerating a by mouth intake. Was resumed on home diet and medications. Had a Mesa catheter inserted and the operating room which was discontinued on postoperative day 1. A drain was placed intraoperatively into the knee which was discontinued on postoperative day 1. Lovenox SCD and MARY hose were utilized for DVT prophylaxis. Vital signs remained stable to the hospital course. Serial labs were obtained which showed a final hemoglobin of 11.5 grams. BMP was reviewed and was stable. Physical examination throughout the hospital course showed an extremity that had sensation that was intact to light touch, palpable pulses, a benign wound, motor intact to the toes, ankle, and knee. Knee range of motion was approximately 0 degrees to 90 degrees. Once an oral pain regimen was tolerated and physical therapy goals were met, it was felt that they were stable for discharge to home. Instructions: Continue with weightbearing as tolerated and range of motion as tolerated. It is OK to shower on the wound if it is not draining. If you note any drainage or for comfort you can cover with dry gauze and tape. Change every 2-3 days as needed. Continue with physical therapy. Resume home diet. Report any fever over 101.5 Fahrenheit, uncontrolled pain, increased drainage, foul odor of drainage, new or increased calf pain or shortness of breath, or any other significant complaints. A 325mg dialy aspirin will be started after finishing anticoagulation if not allergic. Continue with MARY hose on the operative extremity until instructed otherwise. No driving until instructed otherwise. Follow up in approximately 10-14 days. Procedures Performed: see notes below List Procedures: Left total knee arthroplasty Results and Findings: Lab Pending Results 01/16/19 05:28: WBC 7.8, RBC 3.97 L, Hgb 11.5 L, Hct 36.4 L, MCV 91.7, MCH 29.0, MCHC 31.6 L, RDW 14.3 H, Plt Count 148 L, MPV 12.0 01/16/19 05:28: Sodium 139, Plasma Sodium 139, Potassium 4.0, Chloride 103, Carbon Dioxide 28.9, Anion Gap 11.1, BUN 12, Creatinine 0.81, Est GFR (Non-Af Amer) 77, BUN/Creatinine Ratio 14.8, Random Glucose 118 H, Calcium 8.6 Discharge Location: Home Disposition: Home self-care Condition: Good Discharge Activity: Activity as tolerated, Weight bearing - with wheeled walker Discharge Diet: General/regular food Referrals: Myriam Solis MD [Primary Care Provider] - Additional Patient Instructions (free text): Physical Therapy at [facility] in [place] on January 18 at 11:00AM. Please fax PT order and face sheet to fax#[phone]. Follow up Orthopedic Dr Craft appointment on TuesdayFebruary 06 at 9:00am. Prescriptions (Any new or edited meds): Enoxaparin Sodium [Lovenox] 40 mg SC Q24H #7 disp.syrin Morphine Sulfate [Ms Contin] 15 mg PO Q12H #20 tablet.sa oxyCODONE HCL/ACETAMINOPHEN [Percocet 5 MG/325 MG] 2 tab PO Q4H PRN #60 tab PRN Reason: Moderate Pain (Pain Scale 4-6) Sennosides/Docusate Sodium [Senokot-S] 2 tab PO HS #30 tab Complete Home Medications List: Complete Home Medication List: Multivitamins [Multivitamin Shahriar] 1 cap PO DAILY 02/09/17 melatonin 5 mg capsule 5 mg PO HS PRN cap 09/11/18 Bupropion HCl [Wellbutrin Sr] 150 mg PO DAILY 01/11/19 Fluticasone Propionate [Flonase Allergy Relief] 1 spray INHALATION DAILY PRN 01/11/19 Enoxaparin Sodium [Lovenox] 40 mg SC Q24H #7 disp.syrin 01/16/19 Morphine Sulfate [Ms Contin] 15 mg PO Q12H #20 tablet.sa 01/16/19 Sennosides/Docusate Sodium [Senokot-S] 2 tab PO HS #30 tab 01/16/19 oxyCODONE HCL/ACETAMINOPHEN [Percocet 5 MG/325 MG] 2 tab PO Q4H PRN #60 tab 01/16/19 Amb Orders for Discharge: PT Evaluation and Treatment* Facility: [facility], Location: Rehabilitation Services
[2019-01-16 12:59] VITALS: BP 112/55
== END 2019-01-16 13:45 | disposition home or self-care (01) | DRG 470 ==
LOC: MS 06:28 → EDSTATUS 08:00
PROVIDERS: ADMIT Orthopaedic Surgery; ATTEND Orthopaedic Surgery
DX: M17.12 Unilateral primary osteoarthritis, left knee; D62 Acute posthemorrhagic anemia
CPT/HCPCS: 36415; 73560; 80048; 85027; 97110; 97116; 97161; 97165; 97530; 97535